=== PATIENT | female | born 1980 | race Two or more races ===

== ENCOUNTER 2023-08-19 11:15 | Inpatient (IN) | payer OTHER ==
[~2023-08-19] VITALS: Ht 170.2 cm; Wt 90.7 kg
[2023-08-19] MEDS ORDERED: PROBIOTIC1 EAC4 PO (12:04)
[2023-08-19] MEDS ORDERED: AVAPRO300 MG PO (12:04)
[2023-09-30] MEDS ORDERED: FAMOTIDINE20 MG (08:30)
[2023-09-30] MEDS ORDERED: HYDRALAZINE HCL25 MG (08:30)
[2023-09-30] MEDS ORDERED: BUPIVACAINE HCL 30 ML VIAL IV ONE (10:00)
[2023-09-30] MEDS ORDERED: METROnidazole 500 MG TABLET PO ONE (10:00)
[2023-09-30] MEDS ORDERED: LIDOCAINE HCL 1%/EPINEPHRINE 20ML VIAL IJ ONE (10:00)
[2023-09-30] MEDS ORDERED: CEFTRIAXONE SODIUM 2,000 MG VIAL IV ONE (10:00)
[2023-09-30] MEDS ORDERED: METRONIDAZOLE/SODIUM CHLORIDE 500 MG/100 ML PIGGYBACK IV SCH ×2 (10:41→17:00)
[2023-09-30] MEDS ORDERED: TAMSULOSIN HCL 0.4 MG CAP PO SCH (10:42)
[2023-09-30] MEDS ORDERED: LACTOBACILLUS ACIDOPHILUS 1 CAP CAP PO SCH (10:42)
[2023-09-30] MEDS ORDERED: RINGERS SOLUTION,LACTATED 1,000 ML IV SCH (10:45)
[2023-09-30] MEDS ORDERED: ONDANSETRON HCL 2 MG/ML VIAL IV PRN (10:45)
[2023-09-30] MEDS ORDERED: OxyCODONE HCL 5 MG TABLET (ROXICODONE) PO PRN (10:45)
[2023-09-30] MEDS ORDERED: MORPHINE SULFATE 4 MG/ML CARTRIDGE IV PRN (10:45)
[2023-09-30] MEDS ORDERED: ONDANSETRON HCL 2 MG/ML VIAL ONE (11:46)
[2023-09-30] MEDS ORDERED: ACETAMINOPHEN 500 MG GEL..CAP PO SCH (12:00)
[2023-09-30] MEDS ORDERED: ENALAPRILAT DIHYDRATE 1.25 MG/ML VIAL IV ONE (12:56)
[2023-09-30] MEDS ORDERED: GABAPENTIN 300 MG CAPSULE PO SCH (13:00)
[2023-09-30] MEDS ORDERED: HYOSCYAMINE SULFATE 0.125 MG TAB.SUBL SL SCH (13:00)
[2023-09-30] MEDS ORDERED: hydrALAZINE HCL 20 MG VIAL ONE (14:06)
[2023-09-30] MEDS ORDERED: CIPROFLOXACIN IN 5 % DEXTROSE 400 MG/200 ML PIGGYBAG IV SCH (21:00)
[2023-09-30] MEDS ORDERED: FAMOTIDINE/PF 20 MG/2 ML VIAL IV PUSH SCH (21:00)
[2023-10-01 08:48] LABS: ALBUMIN 3.3 gm/dL (3.4-5.0); CALCIUM 8.9 mg/dL (8.5-10.1); CREATININE SERUM 0.9 mg/dL (0.55-1.02); GFR 68.34; MAGNESIUM 2.2 mg/dL (1.8-2.4); PHOSPHOROUS 3.6 mg/dL (2.5-4.9); POTASSIUM 3.96 mEq/L (3.5-5.1)
[2023-10-01 10:38] LABS: HEMATOCRIT 38.5 % (36.0-45.00); MEAN CELL VOLUME 72.7 fL (80.00-100.00); MEAN CORPUSCULAR HEMOGLOBIN 24.5 pg (27.00-32.0); MEAN CORPUSCULAR HGB CONC 33.7 g/dl (32.0-36.0); PLATELET COUNT 185 K/uL (150-450); RED BLOOD COUNT 5.29 M/uL (4.00-6.00); RED CELL DISTRIBUTION WIDTH 14.8 % (11.5-14.5)
[2023-10-01] MEDS ORDERED: ENALAPRILAT DIHYDRATE 1.25 MG/ML VIAL IV PRN (12:45)
[2023-10-01] MEDS ORDERED: ENOXAPARIN SODIUM 40 MG/0.4 ML SYRINGE SUBCUTANEO SCH (17:00)
[2023-10-01] MEDS ORDERED: IRBESARTAN 300 MG TABLET PO SCH (17:00)
[2023-10-01] MEDS ORDERED: hydrALAZINE HCL 25 MG TABLET PO SCH (21:00)
[2023-10-02] MEDS ORDERED: ENOXAPARIN SODIUM 40 MG/0.4 ML SYRINGE SUBCUTANEO SCH (09:00)
[2023-10-02] MEDS ORDERED: INTESTINEX680 M1 PO (11:39)
[2023-10-02] MEDS ORDERED: NEURONTIN300 MG PO (11:39)
[2023-10-02] MEDS ORDERED: LEVSIN/SL0.125 MG SL (11:39)
== END 2023-10-02 15:19 | disposition home or self-care (01) | DRG 331 ==
LOC: SURG 08-26 07:00 → O/R 09-30 05:30 → SURH 09-30 11:47
PROVIDERS: ADMIT Surgery; ATTEND Surgery
PROC: 0DBP4ZZ Excision of Rectum, Percutaneous Endoscopic Approach (ICD-10-PCS; 2023-09-30)
PROC: 0DNW4ZZ Release Peritoneum, Percutaneous Endoscopic Approach (ICD-10-PCS; 2023-09-30)
PROC: 0DJD8ZZ Inspection of Lower Intestinal Tract, Via Natural or Artificial Opening Endoscopic (ICD-10-PCS; 2023-09-30)
PROC: 0DTN4ZZ Resection of Sigmoid Colon, Percutaneous Endoscopic Approach (ICD-10-PCS; principal; 2023-09-30 10:00)
DX: K57.20 Diverticulitis of large intestine with perforation and abscess without bleeding (principal); R59.0 Localized enlarged lymph nodes; N73.6 Female pelvic peritoneal adhesions (postinfective); N99.4 Postprocedural pelvic peritoneal adhesions; I10 Essential (primary) hypertension